=== PATIENT | female | born 1985 | race Two or more races ===

== ENCOUNTER 2021-05-14 11:40 | Emergency (ER) | payer OTHER ==
[~2021-05-14] VITALS: Ht 160 cm; Wt 68.0 kg
[2021-05-14 11:51] VITALS: BP 111/49
[2021-05-14] MEDS ORDERED: DIPH,PERTUSS(ACELL),TET VAC/PF 0.5 ML IM-VACC ONE ×2 (12:07→12:30)
[2021-05-14] MEDS ORDERED: LIDOCAINE-MPF 1%, 5ML ONE (13:57)
[2021-05-14] MEDS ORDERED: LIDOCAINE-MPF 1%, 5ML INFIL ONE (14:00)
[2021-05-14] MEDS ORDERED: MICROFIBRILLAR COLLAGEN 0.5GM/PACK TP ONE (14:30)
[2021-05-14] MEDS ORDERED: MICROFIBRILLAR COLLAGEN 1 GM TP ONE (14:34)
--- NOTE | 2021-05-14 15:36 | NUR ---
EMT dressed wound. Pt up for dc, ambulatory with instruct and f/u. To return to ER if worse or concerns.
== END 2021-05-14 15:56 | disposition home or self-care (01) ==
LOC: ED 12:34
DX: S62.525B Nondisplaced fracture of distal phalanx of left thumb, initial encounter for open fracture (principal); Z89.012 Acquired absence of left thumb; X58.XXXA Exposure to other specified factors, initial encounter; Y93.89 Activity, other specified; Y92.009 Unspecified place in unspecified non-institutional (private) residence as the place of occurrence of the external cause; Y99.8 Other external cause status
CPT/HCPCS: 64450; 90471; 90715